=== PATIENT | female | born 1945 | race Caucasian/White ===

== ENCOUNTER 2018-10-19 09:25 | Outpatient (REF) | payer MEDICARE, BC, SELFPAY ==
[2018-10-19 18:35] LABS: Anion Gap 7.9 mmol/L (3-11); BUN 17 mg/dL (7-18); CO2 30.1 mmol/L (21.0-32.0); CREATININE 1.08 mg/dL (0.55-1.02); Calcium 8.9 mg/dL (8.5-10.1); Chloride 103 mmol/L (98-107); Cholesterol 272 mg/dL (50-200); Estimated GFR 49.46 (mL/min/1.73m2); Glucose 110 mg/dL (70-100); HDL Cholesterol 63 mg/dL (40-60); LDL CHOLESTEROL 175 mg/dL (<100); Potassium 4.4 mmol/L (3.5-5.1); Sodium 141 mmol/L (136-145); Triglyceride 130 mg/dL (30-150)
== END 2018-10-19 09:45 ==
LOC: NCHCN 09:25
PROVIDERS: PCP Nurse Practitioner Family; Visit Provider Nurse Practitioner Family
DX: E78.5 Hyperlipidemia, unspecified (principal); I10 Essential (primary) hypertension
CPT/HCPCS: 80048; 80061; 83721

== ENCOUNTER 2023-06-03 10:39 | Outpatient (REF) | payer OTHER, SELFPAY | END 2023-06-03 10:40 | disposition home or self-care (01) | LOC: NCHCN 10:39 | PROVIDERS: PCP Nurse Practitioner Family; Visit Provider Physician Assistant | DX: R35.0 Frequency of micturition (principal) | CPT/HCPCS: 87086 ==

== ENCOUNTER 2024-04-10 19:48 | Outpatient (REF) | payer OTHER, SELFPAY ==
[2024-04-10 20:15] LABS: HCT 39.8 % (36.0-46.0); HGB 12.9 g/dL (11.2-15.7); MCH 31.1 pg (27.0-33.0); MCHC 32.4 % (32.0-36.0); MCV 96 fL (80-95); MPV 10.1 fL (8.0-11.0); Platelet Count 293 10^3/uL (130-400); RBC 4.15 10^6/uL (3.93-5.22); RDW 13.2 % (11.7-14.6); RDW-SD 47.1 fL; WBC 8.57 10^3/uL (4.4-10.8)
[2024-04-10 20:38] LABS: BUN 23 mg/dL (7-18); CREATININE 1.2 mg/dL (0.55-1.02); Calcium 9.1 mg/dL (8.5-10.1); Chloride 106 mmol/L (98-107); Estimated GFR 45.48 (mL/min/1.73m2); Glucose 106 mg/dL (74-106); Potassium 4.3 mmol/L (3.5-5.1); Sodium 140 mmol/L (136-145); TSH (W/Ref FT4) 1.66 uIU/mL (0.36-3.74)
== END 2024-04-10 19:49 | disposition home or self-care (01) ==
LOC: NCHCN 19:48
PROVIDERS: PCP Nurse Practitioner Family; Visit Provider Nurse Practitioner Family
DX: R42 Dizziness and giddiness (principal)
CPT/HCPCS: 80048; 85027; 84443

== ENCOUNTER 2024-10-09 20:14 | Outpatient (REF) | payer MEDICARE, SELFPAY ==
[2024-10-09 21:32] LABS: Bilirubin Negative (Negative); Blood Negative (Negative); Clarity Cloudy (Clear); Glucose Negative (Negative); Ketones Negative (Negative); Leukocyte Esterase Trace (Negative); Nitrite Negative (Negative); Urobilinogen 0.2 mg/dL (Up to 0.2); pH 5.5 (5-8)
[2024-10-09 21:47] LABS: Bacteria Many HPF (Negative); Casts Negative LPF (Negative); Crystals Few Uric Acid HPF (Negative); Epithelial Cells Few HPF (Negative); Mucus Negative (Negative); RBC Negative HPF (0-2)
[2024-10-09 21:48] LABS: C & S Indicated? No
== END 2024-10-09 20:15 | disposition home or self-care (01) ==
LOC: NCHCN 20:14
PROVIDERS: PCP Nurse Practitioner Family; Visit Provider Nurse Practitioner Family
DX: R41.0 Disorientation, unspecified (principal)
CPT/HCPCS: 81003; 81015

== ENCOUNTER 2024-10-23 20:02 | Outpatient (REF) | payer MEDICARE, SELFPAY ==
[2024-10-23 20:02] LABS: Iron 61 ug/dL (50-170); Total Iron Binding Capacity 313 ug/dL (250-450); Transferrin Sat 19 % (15-50)
[2024-10-23 20:03] LABS: HGB 13.2 g/dL (11.2-15.7); MCH 30.8 pg (27.0-33.0); MCHC 32.2 % (32.0-36.0); MCV 96 fL (80-95); Platelet Count 288 10^3/uL (130-400); RBC 4.28 10^6/uL (3.93-5.22); RDW 12.4 % (11.7-14.6); RDW-SD 44.3 fL; WBC 9.01 10^3/uL (4.4-10.8)
[2024-10-23 20:26] LABS: BUN 28 mg/dL (7-18); CREATININE 1.3 mg/dL (0.55-1.02); Calcium 9.2 mg/dL (8.5-10.1); Chloride 109 mmol/L (98-107); Estimated GFR 41.31 (mL/min/1.73m2); Ferritin 107 ng/mL (8-252); Folate 17.4 ng/mL (8.6-20.0); Glucose 98 mg/dL (74-106); Potassium 4.6 mmol/L (3.5-5.1); Sodium 143 mmol/L (136-145); Vitamin B12 147 pg/mL (193-986)
== END 2024-10-23 20:03 | disposition home or self-care (01) ==
LOC: NCHCN 20:02
PROVIDERS: PCP Nurse Practitioner Family; Visit Provider Nurse Practitioner Family
DX: R41.0 Disorientation, unspecified (principal)
CPT/HCPCS: 80048; 85027; 82607; 82728; 82746; 83540; 83550

== ENCOUNTER 2025-04-16 17:23 | Outpatient (REF) | payer MEDICARE, SELFPAY ==
[2025-04-16 19:16] LABS: Glucose Negative (Negative)
== END 2025-04-16 17:24 | disposition home or self-care (01) ==
LOC: NCHCN 17:23
PROVIDERS: PCP Nurse Practitioner Family; Visit Provider Physician Assistant
DX: R31.9 Hematuria, unspecified (principal)
CPT/HCPCS: 81003

== ENCOUNTER 2025-04-22 20:38 | Outpatient (REF) | payer MEDICARE, SELFPAY ==
[2025-04-22 21:09] LABS: C & S Indicated? No; RBC Negative HPF (0-2); WBC 0-2 HPF (0-5)
== END 2025-04-22 20:39 | disposition home or self-care (01) ==
LOC: NCHCN 20:38
PROVIDERS: PCP Nurse Practitioner Family; Visit Provider Nurse Practitioner Family
DX: R31.9 Hematuria, unspecified (principal)
CPT/HCPCS: 81015